=== PATIENT | female | born 1980 | race Caucasian/White ===

== ENCOUNTER → 2017-04-24 | Outpatient (CLI) | payer BC, OTHER | LOC: RAD 11:05 | DX: Z12.31 Encounter for screening mammogram for malignant neoplasm of breast (principal) ==

== ENCOUNTER → 2018-04-30 | Outpatient (CLI) | payer OTHER | LOC: RAD 01:11 | DX: N63.22 Unspecified lump in the left breast, upper inner quadrant (principal); R92.2 Inconclusive mammogram ==

== ENCOUNTER → 2019-06-22 | Outpatient (CLI) | payer OTHER | LOC: RAD 09:51 → BC 13:30 → RAD 13:31 → BC 20:16 | DX: N63.10 Unspecified lump in the right breast, unspecified quadrant (principal); N63.20 Unspecified lump in the left breast, unspecified quadrant; R92.8 Other abnormal and inconclusive findings on diagnostic imaging of breast ==